=== PATIENT | male | born 1970 | race Caucasian/White ===

== ENCOUNTER 2019-10-29 21:14 | Emergency (ER) | payer OTHER, SELFPAY ==
[2019-10-29 21:15] VITALS: BP 124/68; PULSE 75; RESP 18; TEMP 36.7; O2SAT 98; BMI 36.6
--- NOTE | 2019-10-29 21:38 | CT_ITS ---
HISTORY: LT GROIN PAINHX:HTN,KIDNEY STONES ADDITIONAL HISTORY: None provided. TECHNIQUE: CT images were obtained of the abdomen and pelvis without IV contrast. Enteric contrast was not given. Number of images including paperwork: [id number]. A radiation dose optimization technique was used for this scan. COMPARISON: None FINDINGS: Evaluation of the abdominopelvic organs is limited in the absence of contrast. LOWER THORAX: No consolidation or pleural effusion. LIVER: Mildly decreased density in an inhomogeneous fashion compatible with steatosis. GALLBLADDER: No radiopaque calculi. BILE DUCTS: No significant biliary dilatation. SPLEEN: Unremarkable. PANCREAS: Unremarkable. ADRENAL GLANDS: Unremarkable. KIDNEYS/URETERS: Right renal cystic lesions with minimal peripheral calcification of right upper pole renal cyst. 1-2 mm nonobstructing right renal calculus. No ureteral calculi or hydronephrosis. BOWEL: No bowel obstruction. No significant bowel wall thickening. No localized inflammation. Mild colonic diverticulosis. APPENDIX: No evidence of appendicitis. FREE FLUID: No significant free fluid. FREE AIR: None. LYMPH NODES: No pathologic appearing adenopathy. PERITONEUM, RETROPERITONEUM AND MESENTERY: Otherwise unremarkable. VASCULATURE: Unremarkable as imaged. ABDOMINAL WALL: Unremarkable. PELVIS: Unremarkable bladder. OSSEOUS AND SOFT TISSUE STRUCTURES: No acute skeletal findings. Degenerative changes. CT/Abdomen/Pelvis without Cont IMPRESSION: 1. No acute abdominopelvic abnormality. 2. Right renal calculus. 3. Right renal cystic lesions, 1 of which has minimal calcification. 4. Colonic diverticulosis. Individualized dose optimization techniques were used for this CT. at [id number] Reported and signed by: Ivory Aquino MD Electronically Signed: Ivory Aquino MD at 22:16 EST Tel , Service support ,
[2019-10-29 21:46] LABS: Bacteria 0 SEEN /hpf (None Seen); Red Blood Cells-Urine 0 SEEN /hpf (0-5); Squamous Epithelial Cells - UA 0 SEEN /hpf (0-5)
[2019-10-29 21:48] LABS: Color, Urine Yellow (Yellow); Glucose, Dipstick Normal (Normal); Ketone-Dipstick 5 mg/dl (Negative); Leukocyte Esterase-Dipstick 25 /ul (Negative); Nitrite-Dipstick Negative (Negative); Occult Blood-Urine Negative /ul (Negative); Protein-Dipstick 15 mg/dl (Negative); Urine Bilirubin Dipstick Negative (Negative); Urine Clarity Clear (Clear); Urine Urobilinogen Normal (Normal)
[2019-10-29 22:00] LABS: Calcium Oxalate Crystals Ur RARE /hpf (<or=2+); Mucous, Urine 1+ /hpf (<or=2+); White Blood Cells 0-5 SEEN /hpf (0-5)
--- NOTE | 2019-10-29 22:38 | ED.VISSUMM ---
- ER Visit Summary Date of Service: 10/29/19 Chief Complaint: Flank pain History of Present Illness: The patient is a 49 M who started with left flank pain an hour ago. He states it radiates down to his groin on the left-hand side. He does have a history of kidney stones with the last one being 10 years ago. He denies any hematuria. He took 2 Advil and his pain is now much improved. He denies any fevers. No other symptoms. Physical Examination: Vital signs reviewed. HEENT exam unremarkable. Heart is regular rate and rhythm without murmurs. Lungs are clear to auscultation. Abdomen is soft and nontender. Extremities reveal no edema. Skin exam normal. Neurologic exam normal. Test Results: Urinalysis had 0-5 white blood cells and no red cells. CAT scan reveals no acute abnormalities. Emergency Department Course and Treatment: The patient's CAT scan reveals no evidence of any kidney stones. It is possible that he already passed a kidney stone. He states he feels much better and declines any medications here. He would like to be discharged to home. I informed him he should take medications such as ibuprofen or Tylenol for pain. Treatment Plan: [] Disposition: Discharge Impression: Left flank pain This note was generated with [employer] dictation software. It may contain incorrect words, spelling, and punctuation that were not noted in review of the chart prior to signing ED Disposition - Plan for ED Patient: Referrals: Jagruti Barajas PA [Primary Care Provider] -
--- NOTE | 2019-10-29 22:40 | ED.DEP ---
ED Disposition - Plan for ED Patient: Disposition: Home or Assisted Living Instructions: KIDNEY STONE, Undescended (No Symptoms) Referrals: Jagruti Barajas PA [Primary Care Provider] -
[2019-10-29 22:43] VITALS: BP 118/70; PULSE 70; RESP 14; O2SAT 98
== END 2019-10-29 22:49 | disposition home or self-care (01) ==
PROVIDERS: Emergency Provider Emergency Medicine; Family Provider Physician Assistant; PCP Physician Assistant
DX: R10.9 Unspecified abdominal pain (principal); I10 Essential (primary) hypertension; Z87.442 Personal history of urinary calculi; Z79.899 Other long term (current) drug therapy
CPT/HCPCS: 74176; 81001; 99282

== ENCOUNTER 2023-07-21 19:05 | Emergency (ER) | payer OTHER, SELFPAY ==
[2023-07-21 19:06] VITALS: BP 141/102; PULSE 66; RESP 16; TEMP 36.4; O2SAT 97; BMI 37.3
--- NOTE | 2023-07-21 19:21 | ED.VIS.CHEST ---
HPI History of Present Illness Chief Complaint: Chest Pain Narrative Narrative: 53-year-old male past medical history of hypertension is supposed to be taking lisinopril daily but does not presents with sharp stabbing left-sided chest pain that he experienced at rest while he was at a gnosticist function. He was sitting and felt sharp pain and perhaps some pressure on the left side of his chest. He denies any nausea or vomiting, no shortness of breath or diaphoresis. He states it lasted perhaps 5 minutes and then resolved. Now he thinks that he may be imagining that he might be having any other pain, but it is not as intense as it was. He told his about the stabbing chest pain. He also states that EMS was called and did a twelve-lead EKG and told him that they did not see anything acute but thought he should be evaluated for his chest pain. He denies any prior family history of early RI. No exacerbating or alleviating factors. [facility] Medical History HTN (hypertension) Home Medications lisinopril 5 mg tablet 5 mg PO DAILY 10/29/19 [History Last Taken Unknown] Allergy/AdvReac Type Severity Reaction Status Date / Time azithromycin Allergy Rash Verified 07/21/23 19:06 [From Zithromax Z-Rambo] Surgical History S/P ACL repair Social History Smoking Status: Never smoker ROS ROS ED ROS Narrative Constitutional: No fever, no chills. HEENT: No sore throat. No neck pain. No loss of vision. No rhinorrhea. Cardiovascular: 5 minutes of sharp and stabbing and/or pressure left-sided chest pain. No palpitations. No pedal edema. Respiratory: No cough, no shortness of breath. Abdominal: No abdominal pain. No nausea. No vomiting. Genitourinary: No dysuria. No hematuria. Musculoskeletal: No myalgias. No arthralgias. Neurologic: No headaches. No dizziness. No lightheadedness. Skin: No rash. No change in color. Psychiatric: No depression. No anxiety. EXAM Physical Exam Narrative Exam Narrative: Afebrile. Vital signs noted. HEENT: Normocephalic. Atraumatic. PERRL, EOMI. Neck soft and supple. No point tenderness or step off. Cardiovascular: Regular rate and rhythm. No murmurs, rubs, or gallops appreciated. Respiratory: No tachypnea. Lungs clear to auscultation bilaterally. Gastrointestinal: Abdomen soft, nontender, with normoactive bowel sounds. No rebound or guarding. Neurological: Awake. Alert. Nonfocal, nonlateralizing. Skin: No rash. Normal color. No pallor. Musculoskeletal: No pedal edema. Full range of motion extremities. Const Vital Signs: 07/21/23 19:06 07/21/23 19:22 07/21/23 19:22 Temperature 97.6 F L Temperature Source Temporal Pulse Rate 66 69 Respiratory Rate 16 17 Blood Pressure 141/102 H 150/90 H Blood Pressure Mean 115 110 Pulse Ox 97 96 Oxygen Delivery Method Room Air Room Air Heart Score History: Slightly/Non-Suspicious ECG: Normal Age: >45 - <65 years Risk Factors: 1 or 2 Risk Factors Score: 2 MDM MDM MDM Narrative Medical decision making narrative: Nursing protocol chest pain work-up was pursued. I reviewed his EKG independently and interpreted it as normal sinus rhythm at 65 bpm without ectopy or acute ST changes. No STEMI. I reviewed his laboratory work and he has a normal white count of 7.3, hemoglobin normal at 15.7, platelet count also normal at 210. BMP shows chloride slightly elevated at 108 which I think is nonspecific, glucose appropriately elevated at 98 with a low anion gap of 4. High-sensitivity troponin initially is 7. Chest x-ray interpreted by myself independently in 1 view shows no evidence of an acute process, no pneumothorax or pneumonia. I do not feel antibiotics are indicated. I have low suspicion for pulmonary embolism because the history and physical is not suggestive of that. The same goes for aortic dissection as he is not having tearing back pain, his history and physical is not suggestive of that either. At this point in time, his second troponin is pending. He was told that he needs to consistently take his lisinopril 5 mg orally for his blood pressure. Patient will be signed out to the oncoming physician Dr. Jackson Alexander to check the repeat troponin. I do feel that as long as it is normal, and delta troponin is less than 7 that he can be discharged to follow-up with his primary care provider. Patient is in stable condition. History & Record Review Discussion w/independent historian: Patient and Family Additional record(s) reviewed:: Prior ED visit Lab Data Attestation: I reviewed the patient's lab results. Labs: Laboratory Results - last 24 hr 07/21/23 19:20 WBC 7.3 RBC 5.02 Hgb 15.7 Hct 46.5 MCV 92.6 MCH 31.3 MCHC 33.8 RDW Std Deviation 43.1 RDW Coeff of Darrick 12.6 Plt Count 210 MPV 10.8 Immature Gran % (Auto) 0.500 Neut % (Auto) 73.6 H Lymph % (Auto) 17.2 L [place] % (Auto) 6.4 Eos % (Auto) 1.8 Baso % (Auto) 0.5 Absolute Neuts (auto) 5.4 Absolute Lymphs (auto) 1.26 Nucleated RBC % 0 Sodium 140 Potassium 3.6 Chloride 108 H Carbon Dioxide 28.0 Anion Gap 4 L BUN 15 Creatinine 1.10 Estim Creat Clear Calc 81.11 Est GFR (MDRD) Af Amer 90 Est GFR (MDRD) Non-Af 75 BUN/Creatinine Ratio 13.6 Glucose 98 Calcium 9.3 Troponin I High Sens 7 Radiography Diagnostic Testing: Clinical Impression(s) from Imaging Studies Chest X-Ray 07/21/23 19:37 IMPRESSION: 1. No radiographic evidence of acute cardiopulmonary disease. Electronically Signed: Jacoby Fraser DO at 20:07 EDT , Discharge Plan Triage Chief Complaint: Chest Pain ED Provider: Ryan Carvalho Dx/Rx/DC Orders Prescriptions: No Action lisinopril 5 MG tablet 5 mg PO DAILY Patient Comments: TAKE 1 TABLET BY MOUTH EVERY DAY Primary Care Provider: Jagruti Barajas Referrals: Jagruti Barajas PA [Primary Care Provider] -
[2023-07-21 19:22] VITALS: BP 150/90; PULSE 69; RESP 17; O2SAT 96
[2023-07-21 19:27] LABS: Absolute Lymphocyte Count 1.26 X10^3/uL (0.83-4.51); Absolute Neutrophil Count 5.4 X10^3/uL (2.0-7.7); Basophil# 0.04 X10^3/uL; Basophil% 0.5 % (0-1); Eosinophil# 0.13 X10^3/uL; Eosinophils% 1.8 % (0-5); Hematocrit 46.5 % (40-54); Hemoglobin 15.7 g/dL (13.0-16.5); Lymphocyte # 1.26 X10^3/ul (0.83-4.51); Lymphocyte % 17.2 % (19-41); Mean Corp Hgb Conc 33.8 g/dL (32-36); Mean Corpuscular Hgb 31.3 pg (27.0-32.0); Mean Corpuscular Volume 92.6 fL (80-94); Mean Platelet Vol. 10.8 fl (6.2-12.0); Monocyte# 0.47 X10^3/uL; Monocyte% 6.4 % (0-10); NRBC Flagged by Analyzer 0 % (0-5); Neutrophil # 5.38 X10^3/uL (2.7-7.7); Neutrophil % 73.6 % (47-70); Platelet Count 210 K/mm3 (150-450); RBC Distribution Width CV 12.6 % (11.6-14.6); RBC Distribution Width SD 43.1 fl (35.1-43.9); Red Blood Count 5.02 M/mm3 (4.6-6.2); White Blood Count 7.3 K/mm3 (4.4-11.0)
--- NOTE | 2023-07-21 19:37 | RAD_ITS ---
INDICATION: chest pain EXAMINATION/TECHNIQUE: X-RAY - XR Chest 1 View COMPARISON: CT abdomen and pelvis October 29, 2019. FINDINGS: LINES/DEVICES: None. LUNGS: Symmetric normal lung volumes. No airspace opacity or abnormal interstitial pattern. No nodule or mass. No pleural effusion or pneumothorax. MEDIASTINUM AND CARDIOVASCULAR STRUCTURES: Normal size and contour of the cardiomediastinal silhouette. No evidence of pulmonary vascular congestion. BONES AND SOFT TISSUES: No fracture or focal osseous lesion. RAD/Chest 1 View (Portable) IMPRESSION: 1. No radiographic evidence of acute cardiopulmonary disease. Electronically Signed: Jacoby Fraser DO at 20:07 EDT ,
[2023-07-21 19:45] LABS: Anion Gap 4 (5-15); BUN 15 mg/dL (7-18); BUN/Creat Ratio 13.6 RATIO (10-20); Calcium,Total 9.3 mg/dL (8.5-10.1); Chloride 108 mmol/L (98-107); EST Glomerular Filtration Rate 75 mL/min (>60); Est Glom Filt Rate - Afr Amer 90 mL/min (>60); Estimated Creatinine Clearance 81.11 ml/min; Glucose 98 mg/dL (74-106); Potassium 3.6 mmol/L (3.5-5.1); Sodium Level 140 mmol/L (136-145); Troponin-I HS (w/2H Reflex) 7 pg/mL (3.0-78.0)
[2023-07-21 21:25] LABS: Reflex Troponin-HS? (from REC) Y
[2023-07-21 22:34] LABS: Troponin-I HS 9 pg/mL (3.0-78.0)
[2023-07-21 23:13] VITALS: BP 136/83
== END 2023-07-21 23:19 | disposition home or self-care (01) ==
PROVIDERS: Emergency Provider Emergency Medicine; PCP Physician Assistant; Visit Provider Emergency Medicine
DX: R07.9 Chest pain, unspecified (principal); I10 Essential (primary) hypertension; Z79.899 Other long term (current) drug therapy
CPT/HCPCS: 71045; 80048; 84484; 85025; 93005; 99283; A4216

== ENCOUNTER 2025-04-03 22:01 | Emergency (ER) | payer OTHER, SELFPAY ==
[2025-04-03 22:01] VITALS: BP 151/91; PULSE 72; RESP 18; TEMP 36.3; O2SAT 98; BMI 34.7
--- NOTE | 2025-04-03 22:25 | CT_ITS ---
PROCEDURE: ABDOMEN/PELVIS WITHOUT CONT 04/03/2025 REASON FOR EXAM: KIDNEY STONE TECHNIQUE: Abdomen and pelvis CT without intravenous contrast. Noncontrast technique limits evaluation of the abdominal and pelvic viscera. Coronal and Sagittal reconstruction series were provided. One or more dose reduction techniques were used (e.g., Automated exposure control, adjustment of the mA and/or kV according to patient size, use of iterative reconstruction technique). PATIENT PREPARATION: Per protocol ORAL CONTRAST TYPE: None. AMOUNT: mL COMPARISON: CT abdomen and pelvis 10/29/2019 FINDINGS: Lung bases: Left lower lobe consolidative opacity with air bronchograms, concerning for pneumonia. Liver: Normal size. No obvious mass. Gallbladder: No ductal dilation. Gallbladder is unremarkable. Spleen: Normal size. Pancreas: Normal size. No surrounding inflammation. Adrenals: Unremarkable. Kidneys: 2 mm left UVJ calculus. No hydronephrosis. 2 mm nonobstructing right upper pole calculus. No right hydronephrosis. Right renal simple cyst. Bladder: Urinary bladder is unremarkable. Reproductive Organs: No pelvic mass. No prostatomegaly. Bowel: Small hiatal hernia. The stomach is otherwise unremarkable. No bowel dilation. Colonic diverticulosis without diverticulitis. Moderate colonic stool. Appendix: Normal appendix. Lymph nodes: No suspicious lymph node enlargement. Vasculature: The abdominal aorta and IVC contours are normal. Noncontrast technique limits evaluation. Mild atherosclerotic calcifications. Peritoneum / Retroperitoneum: No pneumoperitoneum. No ascites. Bones: Degenerative changes of the spine. CT/Abdomen/Pelvis without Cont IMPRESSION: 1. 2 mm left UVJ calculus, without hydronephrosis. 2. Additional 2 mm right upper pole nonobstructing calculus. 3. Left lower lobe consolidative opacity, concerning for pneumonia. 4. Colonic diverticulosis without diverticulitis. OVERALL FINAL ASSESSMENT: . LI-RADS is not meant to be used in patients <18 years or patients with cirrhosi s due to congenital hepatic fibrosis or due to vascular disorders, because these patients have a lower chance of developing HC C. [facility]
[2025-04-03] MEDS: Morphine 4 MG/ML Syringe IV (22:57)
[2025-04-03] MEDS: 0.9% Normal Saline (1000mL) 1,000 ML 250 ML IV (22:57)
[2025-04-03] MEDS: Ondansetron 4 MG/2 ML Vial IV (22:57)
[2025-04-03] MEDS: Ketorolac 15 MG/ML Vial IV (22:57)
[2025-04-03 23:01] VITALS: PULSE 72; RESP 18; O2SAT 96
--- NOTE | 2025-04-03 23:03 | EX.ED.DYSGE1 ---
HPI History of Present Illness Chief Complaint: Flank Pain Informant: patient and spouse/S.O. Narrative Narrative: Sudden left-sided flank pain shortly prior to arrival. Had more dark urine this morning. No fever or chills. No vomiting. History of kidney stones 2 in the past with no interventions. Last time was 10 years ago. History of hypertension on medications. Denies gastric ulcers or kidney injury history. Allergy to Zithromax. Prior similar symptoms: Yes PFSH PFSH Medical History Pneumonia Kidney stone HTN (hypertension) Home Medications ?Medication ?Instructions ?Recorded ?Last Taken ?Type lisinopril 5 mg tablet 5 mg PO DAILY 10/29/19 Unknown History ondansetron 4 mg disintegrating 4 mg PO Q8H PRN PRN Nausea #10 tabs 04/04/25 Unknown Rx tablet oxycodone-acetaminophen 5 mg-325 1 tab PO Q6H PRN PRN Pain 3 days 04/04/25 Unknown Rx mg tablet #12 TABLETS Allergy/AdvReac Type Severity Reaction Status Date / Time azithromycin (From Zithromax Allergy Rash Verified 04/03/25 22:03 Z-Rambo) Surgical History S/P ACL repair Social History Smoking Status: Never smoker ROS ROS ED Constitutional Constitutional ED: Denies chills, fever(s) or sweats ENT ENT ED: Denies sore throat Cardiovascular Cardiovascular: Denies chest pain, leg edema, palpitations or racing heartbeat Respiratory/Chest Respiratory/Chest: Denies cough, dyspnea or dyspnea on exertion Gastrointestinal Gastrointestinal: Denies abdominal pain, diarrhea, nausea or vomiting Genitourinary Genitourinary ED: Denies dysuria, hematuria or urinary frequency Musculoskeletal Musculoskeletal: Reports back pain; Denies extremity pain or neck pain Integumentary Denies rash or wounds Neurologic Neurologic: Denies headache(s), paresthesias or weakness EXAM Physical Exam Const Vital Signs: 04/03/25 22:01 04/03/25 23:01 04/04/25 00:00 Temperature 97.4 F L 98.8 F Temperature Source Oral Oral Pulse Rate 72 72 76 Respiratory Rate 18 18 16 Blood Pressure 151/91 H 130/84 H Blood Pressure Mean 111 99 Pulse Ox 98 96 97 Oxygen Delivery Method Room Air Room Air Room Air Positive well nourished and well developed Constitutional Narrative: Nontoxic, uncomfortable General Appearance ED: well developed HEENT Reports moist mucous membranes normocephalic and atraumatic Eyes General Eye ED: Yes normal appearance of both eyes Neck full ROM Chest Wall Chest: Negative for tenderness Resp normal respiratory effort and normal air movement Effort and Inspection: symmetric chest movement; Negative for respiratory distress Cardio regular rate, regular rhythm and no murmurs Peripheral Pulses: pulses 2+ throughout GI normal to inspection, nondistended, normoactive bowel sounds and non-tender Palpation: Negative for guarding or rebound tenderness present Back/Spine Back/Spine Narrative: tender left CVA. Extremity normal to inspection General Extremety ED: Negative for edema or tenderness General Extremity: Negative for edema Neuro oriented x3 and no sensory deficits noted Sensorium / Orientation: awake and alert Skin no rashes or lesions noted and no wounds MDM MDM MDM Narrative Medical decision making narrative: Interventions / MDM: Differential diagnosis: Left renal colic, kidney stone, hematuria Diagnosis considered but do not suspect: UTI however labs negative My EKG interpretation: N/A Imaging independently reviewed and interpreted by myself: CT abdomen pelvis: Tiny stone currently in the bladder. No obstructive uropathy noted. External documents reviewed: N/A Test considered but not ordered:N/A ED course: Sudden left flank pain history of kidney stones. Uncomfortable. Nontoxic.Vital stable. IV established. Renal stone protocol initiated. Fluids, morphine Toradol and Zofran ordered for symptom control. 2224: Symptoms improved at this time. I reviewed interpreted CT scan appears there is a tiny stone in the bladder currently. No obstructive uropathy seen. 0040: Per radiology reporting 2 mm stone left UVJ without hydro. Clinically remains symptom-free. Urine with hematuria no infection. Normal renal function normal white count. He has ibuprofen at home. I will write for oxycodone and Zofran to use as needed. Urology follow-up. All questions were answered. Re-evaluation: stable Disposition discussed with patient/family/significant other: Patient significant other Case discussed with consulting clinician: N/A This note was generated with [employer] software. It may contain incorrect words, spelling, and punctuation that were not noted in checking the note before signing. Lab Data Attestation: I reviewed the patient's lab results. Labs: Laboratory Results - last 24 hr 04/03/25 04/03/25 23:00 23:55 WBC 5.7 RBC 4.70 Hgb 14.0 Hct 42.3 MCV 90.0 MCH 29.8 MCHC 33.1 RDW Std Deviation 46.3 H RDW Coeff of Darrick 14.1 Plt Count 190 MPV 12.1 H Immature Gran % (Auto) 0.400 Neut % (Auto) 68.3 Lymph % (Auto) 21.1 [place] % (Auto) 7.1 Eos % (Auto) 2.7 Baso % (Auto) 0.4 Absolute Neuts (auto) 3.9 Absolute Lymphs (auto) 1.19 Nucleated RBC % 0 Sodium 136 Potassium 3.6 Chloride 103 Carbon Dioxide 21.8 Anion Gap 12 BUN 15 Creatinine 1.08 Estim Creat Clear Calc 98.13 Est GFR (MDRD) Non-Af 82 BUN/Creatinine Ratio 14.2 Glucose 197 H Calcium 9.2 Urine Color Yellow Urine Clarity Clear Urine pH 5.0 Ur Specific [place] 1.025 Urine Protein 30 H Urine Glucose (UA) Normal Urine Ketones 5 H Urine Occult Blood 250 H Urine Nitrite Negative Urine Bilirubin Negative Urine Urobilinogen 1 H Ur Leukocyte Esterase 25 H Urine RBC 10-25 SEEN Urine WBC 0 SEEN Ur Squamous Epith Cells 0 SEEN Urine Bacteria RARE Urine Mucus 0 SEEN Radiography Diagnostic Testing: Clinical Impression(s) from Imaging Studies Abdomen/Pelvis CT 04/03/25 22:25 IMPRESSION: 1. 2 mm left UVJ calculus, without hydronephrosis. 2. Additional 2 mm right upper pole nonobstructing calculus. 3. Left lower lobe consolidative opacity, concerning for pneumonia. 4. Colonic diverticulosis without diverticulitis. OVERALL FINAL ASSESSMENT: . LI-RADS is not meant to be used in patients <18 years or patients with cirrhosis due to congenital hepatic fibrosis or due to vascular disorders, because these patients have a lower chance of developing HCC. [facility] Triage Chief Complaint: Flank Pain ED Provider: Bunny Maher Dx/Rx/DC Orders Clinical Impression: Kidney stone on left side, Renal colic on left side, Hematuria Instructions: ED Kidney Stone with Pain Prescriptions: New oxycodone-acetaminophen 5-325 mg tablet 1 tab PO Q6H PRN PRN (Reason: Pain) 3 Days Qty: 12 0RF ondansetron 4 mg tablet,disintegrating 4 mg PO Q8H PRN PRN (Reason: Nausea) Qty: 10 0RF No Action lisinopril 5 MG tablet 5 mg PO DAILY Patient Comments: TAKE 1 TABLET BY MOUTH EVERY DAY Primary Care Provider: Jagruti Barajas Referrals: Branden Church MD [Med Staff - Active Staff] - 1-2 Weeks Jagruti Barajas PA [Primary Care Provider] - Activity Restrictions/Additional Instructions: CT scan reporting 2 mm stone left UVJ, on my review appears to be in the bladder. Urine negative for infection noted blood. This is expected with kidney stones. Your labs are normal. Use your Advil at home to 600 mg. Can use Zofran and additional pain medicines if needed. Follow-up with urology. Print Language: Frisian Disposition Disposition: Home, Self Care
[2025-04-03 23:08] LABS: Absolute Lymphocyte Count 1.19 X10^3/uL (0.83-4.51); Absolute Neutrophil Count 3.9 X10^3/uL (2.0-7.7); Basophil# 0.02 X10^3/uL; Basophil% 0.4 % (0-1); Eosinophil# 0.15 X10^3/uL; Eosinophils% 2.7 % (0-5); Hematocrit 42.3 % (40-54); Lymphocyte # 1.19 X10^3/ul (0.83-4.51); Lymphocyte % 21.1 % (19-41); Mean Corp Hgb Conc 33.1 g/dL (32-36); Mean Corpuscular Hgb 29.8 pg (27.0-32.0); Mean Platelet Vol. 12.1 fl (6.2-12.0); Monocyte% 7.1 % (0-10); NRBC Flagged by Analyzer 0 % (0-5); Neutrophil # 3.87 X10^3/uL (2.7-7.7); Neutrophil % 68.3 % (47-70); Platelet Count 190 K/mm3 (150-450); RBC Distribution Width CV 14.1 % (11.6-14.6); RBC Distribution Width SD 46.3 fl (35.1-43.9); White Blood Count 5.7 K/mm3 (4.4-11.0)
[2025-04-03 23:38] LABS: Anion Gap 12 (5-15); BUN 15 mg/dL (4-19); BUN/Creat Ratio 14.2 RATIO (10-20); Calcium,Total 9.2 mg/dL (7.6-11.0); Carbon Dioxide 21.8 mmol/L (21.0-32.0); Chloride 103 mmol/L (98-108); Creatinine, Serum 1.08 mg/dL (0.70-1.20); EST Glomerular Filtration Rate 82 (>60); Estimated Creatinine Clearance 98.13 ml/min (50-250); Glucose 197 mg/dL (70-99); Potassium 3.6 mmol/L (3.3-5.1); Sodium Level 136 mmol/L (133-145)
[2025-04-03 23:59] LABS: Mucous, Urine 0 SEEN /hpf (<or=2+); Squamous Epithelial Cells - UA 0 SEEN /hpf (0-5); White Blood Cells 0 SEEN /hpf (0-5)
[2025-04-04] VITALS: BP 130/84; PULSE 76; RESP 16; TEMP 37.1; O2SAT 97
[2025-04-04] LABS: Color, Urine Yellow (Yellow); Glucose, Dipstick Normal (Normal); Ketone-Dipstick 5 mg/dl (Negative); Leukocyte Esterase-Dipstick 25 /ul (Negative); Nitrite-Dipstick Negative (Negative); Occult Blood-Urine 250 /ul (Negative); Protein-Dipstick 30 mg/dl (Negative); Specific Gravity, Urine 1.025 (1.002-1.030); Urine Bilirubin Dipstick Negative (Negative); Urine Clarity Clear (Clear); Urine Urobilinogen 1 mg/dl (Normal)
[2025-04-04 00:25] LABS: Bacteria RARE /hpf (None Seen); Red Blood Cells-Urine 10-25 SEEN /hpf (0-5)
[2025-04-04 00:47] VITALS: BP 113/72; PULSE 73; RESP 16; TEMP 36.7; O2SAT 98
== END 2025-04-04 00:52 | disposition home or self-care (01) ==
PROVIDERS: Emergency Provider Emergency Medicine; PCP Physician Assistant; Visit Provider Emergency Medicine
DX: N20.2 Calculus of kidney with calculus of ureter (principal); I10 Essential (primary) hypertension; R31.9 Hematuria, unspecified; Z87.442 Personal history of urinary calculi
CPT/HCPCS: 74176; 80048; 81001; 85025; 96361; 96374; 96375; 99283; A4216; J2405

== ENCOUNTER 2025-04-14 02:56 | Emergency (ER) | payer OTHER, SELFPAY ==
[2025-04-14 02:57] VITALS: BP 141/105; PULSE 59; RESP 18; TEMP 36.5; O2SAT 100; BMI 35.2
--- NOTE | 2025-04-14 03:45 | EDS_ITS ---
HPI History of Present Illness Chief Complaint: Back Informant: patient Onset/Context/Timing Onset: Days Context: Gradual Onset Timing: Continuous Quality: Sharp and Aching Current Severity: Mild Maximum Severity: Moderate Worsened by: improves with - (Lying supine. Better with movement.) Associated Symptoms Associated Symptoms: Negative for Numbness, Tingling, Radiation to Right Leg, Radiation to Left Leg, Fever, Abdominal Pain, Dysuria, Unable to Ambulate, Unable to Transfer, Urinary Retention, Urinary Incontinence, Constipation or Fecal Incontinence Narrative Narrative: 55-year-old male history of hypertension. He said pneumonia last several weeks he has been on 3 antibiotics. He says it is starting to resolve. He has been coughing a lot. Patient states he is having upper back and shoulder pain from all the coughing believes he has muscle spasms. No prior back history or back surgery. No significant low back pain. No numbness or weakness to his upper or lower extremities. No bowel or bladder incontinence. No fall or trauma. Patient was seen by urgent care yesterday. Was placed on muscle relaxant and anti-inflammatory. He is only taken 1 of each. He said he is not getting any relief. Prior similar symptoms: No Recent Illness/Hospitalization: No PFSH PFSH Medical History Pneumonia Kidney stone HTN (hypertension) Home Medications ?Medication ?Instructions ?Recorded ?Last Taken ?Type lisinopril 5 mg tablet 5 mg PO DAILY 10/29/19 Unkno wn History ondansetron 4 mg disintegrating 4 mg PO Q8H PRN PRN Na usea #10 tabs 04/04/25 Unknown Rx tablet oxycodone-acetaminophen 5 mg-325 1 tab PO Q6H PRN PRN Pain 3 days 04/04/25 Unknown Rx mg tablet #12 TABLETS Allergy/AdvReac Type Severity Reaction Status Date / Time azithromycin (From Zithromax Allergy Rash Verified 04/14/25 03:00 Z-Rambo) Surgical History S/P ACL repair Social History Smoking Status: Never smoker ROS ROS ED ROS Narrative Recent pneumonia. Back pain. Constitutional Constitutional ED: Denies chills or fever(s) Eyes Eyes: Denies blurry vision ENT ENT ED: Denies ear pain Cardiovascular Cardiovascular: Denies chest pain Respiratory/Chest Respiratory/Chest: Denies dyspnea Gastrointestinal Gastrointestinal: Denies abdominal pain Genitourinary Genitourinary ED: Denies dysuria or hematuria Musculoskeletal Musculoskeletal: Reports back pain; Denies arthralgias, myalgias or neck pain Integumentary Denies abscess or Abrasions Neurologic Neurologic: Denies headache(s) Psychiatric Psychiatric: Reports anxiety Endocrine Endocrinology: Denies cold intolerance Hematologic/Lymphatic Hematologic/Lymphatic: Denies easy bleeding, easy bruising or lymphadenopathy Allergic/Immunologic Allergic/Immunologic ED: Denies mouth swelling, tongue swelling or urticaria EXAM Physical Exam Narrative Exam Narrative: Well-appearing 55-year-old male. Anxious. Vital signs stable afebrile. Pulse ox 100% on room air. No hypoxia. He is anxious but he is in no distress. H EENT exam pupils round react to light. Moist mucous membranes. Neck nontender no lymphadenopathy. Lungs clear to auscultation bilaterally. Heart regular rhythm rate about 60 no murmur. Chest wall ribs nontender. Abdomen soft nontender. Moving all 4 extremities. He can stand up without any difficulty. Normal sleeve setter safety stitch strength 5 out of 5 bilaterally. Normal dorsi plantarflexion. No cauda equina. No saddle anesthesia. Back his lower back and lower spine are nontender. His upper shoulders parathoracic area soft tissue tenderness consistent with muscle spasm. There is no redness or warmth. There is no signs of trauma. Neurologically is awake and alert. Answering questions following commands. Normal upper and lower extremity strength. Again no cauda equina. Const Vital Signs: 04/14/25 02:57 Temperature 97.7 F L Temperature Source Oral Pulse Rate 59 L Respiratory Rate 18 Blood Pressure 141/105 H Blood Pressure Mean 117 Pulse Ox 100 Oxygen Delivery Method Room Air Positive well nourished and well developed; Negative for cachectic, contractures or unkempt General Appearance ED: well developed and NAD; Negative for unkempt, cachectic, contractures or pallor Nutritional Appearance: Negative for cachectic HEENT Denies moist mucous membranes, dry mucous membranes or other Negative for trauma, tenderness or other Mouth ED: No dry mucous membranes Mouth: No dry mucous membranes Eyes PERRL and EOMs intact bilaterally Neck no lymphadenopathy, supple and no JVD Resp normal respiratory effort and clear to auscultation bilaterally Cardio regular rate, regular rhythm, S1 normal heart sound, S2 normal heart sound and no murmurs GI normal to inspection, nondistended, normoactive bowel sounds, soft to palpation, non-tender, non-distended and no masses Palpation: Negative for tender, guarding or rebound tenderness present Back/Spine normal to inspection and no thoracic nor lumbar tenderness Back/Spine Narrative: Upper shoulders lower paracervical and upper parathoracic soft tissue tenderness consistent with muscle spasm. Cervical Spine: Negative for cervical spine tenderness and paracervical muscle tenderness Thoracic Spine / Upper Back: paraspinal muscle tenderness Extremity normal to inspection and no clubbing, cyanosis or edema General Extremety ED: Negative for edema or tenderness General Extremity: Negative for edema Neuro oriented x3 and no sensory deficits noted Sensorium / Orientation: alert; Negative for confused, lethargic or stuporous Motor Exam: strength 5/5 throughout Psych mental status grossly normal Appearance: Negative for unkempt Skin no rashes or lesions noted and no wounds General Skin Exam: Negative for jaundice or pallor Lesions: No lesion noted Rashes: No rashes noted Trauma: Negative for abrasion or puncture Wounds: Negative for wounds noted MDM MDM MDM Narrative Medical decision making narrative: 55-year-old male exam benign. Lungs are clear. He does have reproducible musculoskeletal pain in the upper back consistent with muscle spasm. He is on a muscle relaxant anti-inflammatory but just started those. Will be given IM Toradol, morphine and Zofran for his pain help him sleep tonight he should continue using his medications. Massage. Hot shower warm bath and should progressively improve. Patient is comfortable with the plan. History & Record Review Discussion w/independent historian: Patient and Family Additional record(s) reviewed:: Prior inpatient record, Prior outpatient record, Prior ED visit and Prior labs Discharge Plan Triage Chief Complaint: Back ED Provider: Dhaval Marks Dx/Rx/DC Orders Clinical Impression: Back muscle spasm, History of hypertension Instructions: ED Back Spasm, No Trauma Prescriptions: No Action lisinopril 5 MG tablet 5 mg PO DAILY Patient Comments: TAKE 1 TABLET BY MOUTH EVERY DAY oxycodone-acetaminophen 5-325 mg tablet 1 tab PO Q6H PRN PRN (Reason: Pain) 3 Days Qty: 12 0RF ondansetron 4 mg tablet,disintegrating 4 mg PO Q8H PRN PRN (Reason: Nausea) Qty: 10 0RF Primary Care Provider: Jagruti Barajas Referrals: Jagruti Barajsa, PA [Primary Care Provider] - 3-5 Days if not improving Activity Restrictions/Additional Instructions: Your back spasms. Typically from strain your back and then the muscle goes in spasm. Hot shower, warm bath, whirlpool tub and massage. Use the muscle relaxant the urgent care person prescribed to you. Also the anti-inflammatory meloxicam. This should progressively get better over the next several days. Follow-up with your primary care physician if not improving. Print Language: Hebrew Disposition Disposition: Home, Self Care
[2025-04-14] MEDS: Ketorolac 60 MG/2 ML Vial IM (03:52)
[2025-04-14] MEDS: Ondansetron 8 MG Tablet PO (03:54)
[2025-04-14] MEDS: morphine 10 MG/ML Syringe IM (03:54)
[2025-04-14 04:31] VITALS: BP 129/87; PULSE 68; RESP 16; TEMP 37.2; O2SAT 96
== END 2025-04-14 04:32 | disposition home or self-care (01) ==
PROVIDERS: Emergency Provider Emergency Medicine; PCP Physician Assistant; Visit Provider Emergency Medicine
DX: M62.830 Muscle spasm of back (principal); I10 Essential (primary) hypertension
CPT/HCPCS: 96372; 99283

== ENCOUNTER 2025-04-17 20:40 | Emergency (ER) | payer OTHER, SELFPAY ==
[2025-04-17 20:41] VITALS: BP 146/90; PULSE 68; RESP 15; TEMP 36.3; O2SAT 97; BMI 34.7
--- NOTE | 2025-04-17 21:05 | EDS_ITS ---
HPI History of Present Illness Chief Complaint: Edema Informant: patient Onset/Context/Timing Onset: Today and Hours Context: Gradual Onset Timing: Continuous Current Severity: Mild Maximum Severity: Mild Narrative Narrative: 55-year-old male history of hypertension and kidney stones. He has not been on his lisinopril for 2 weeks. Said tonight he thought his lips felt tingling and maybe like they were swelling. Denies any trouble breathing or swallowing. No tongue swelling. No prior history. No trauma. Prior similar symptoms: No Recent Illness/Hospitalization: No PFSH PFSH Medical History Pneumonia Kidney stone HTN (hypertension) Home Medications ?Medication ?Instructions ?Recorded ?Last Taken ?Type lisinopril 5 mg tablet 5 mg PO DAILY 10/29/19 Unkno wn History ondansetron 4 mg disintegrating 4 mg PO Q8H PRN PRN Na usea #10 tabs 04/04/25 Unknown Rx tablet oxycodone-acetaminophen 5 mg-325 1 tab PO Q6H PRN PRN Pain 3 days 04/04/25 Unknown Rx mg tablet #12 TABLETS Allergy/AdvReac Type Severity Reaction Status Date / Time azithromycin (From Zithromax Allergy Rash Verified 04/17/25 20:48 Z-Rambo) Surgical History S/P ACL repair Social History Smoking Status: Never smoker ROS ROS ED ROS Narrative Recent pneumonia. Resolving. Constitutional Constitutional ED: Denies chills or fever(s) Eyes Eyes: Denies blurry vision ENT ENT ED: Denies ear pain Cardiovascular Cardiovascular: Denies chest pain Respiratory/Chest Respiratory/Chest: Denies cough or dyspnea Gastrointestinal Gastrointestinal: Denies abdominal pain Genitourinary Genitourinary ED: Denies dysuria Musculoskeletal Musculoskeletal: Denies arthralgias Integumentary Denies abscess Neurologic Neurologic: Denies headache(s) Psychiatric Psychiatric: Denies anxiety Endocrine Endocrinology: Denies cold intolerance Hematologic/Lymphatic Hematologic/Lymphatic: Reports none Allergic/Immunologic Allergic/Immunologic ED: Denies mouth swelling, tongue swelling or urticaria EXAM Physical Exam Narrative Exam Narrative: Well-appearing 55-year-old male. Vital signs are stable afebrile. He is in no distress. H EENT exam pupils round reactive light. Moist mucous membranes. He is really no swelling at this time of his lips or tongue. No trouble breathing. No stridor or drooling. Neck nontender. No lymphadenopathy. Lungs clear to auscultation bilaterally. Heart regular rhythm no murmur rate about 70. Chest wall ribs nontender. Abdomen soft nontender. Moving all 4 extremities. Nontender no edema. Normal strength. Normal range of motion. Neurologically is awake and alert. Answering questions following commands. Very benign exam. At this time I do not appreciate any swelling of his lips or tongue. This does not look like angio edema. Const Vital Signs: 04/17/25 20:41 04/17/25 20:55 Temperature 97.3 F L Temperature Source Temporal Pulse Rate 68 Respiratory Rate 15 Respiratory Effort Normal Non-Labored Respiratory Pattern Normal Blood Pressure 146/90 H Blood Pressure Mean 108 Pulse Ox 97 Oxygen Delivery Method Room Air Positive well nourished and well developed; Negative for cachectic, contractures or unkempt General Appearance ED: well developed and NAD; Negative for unkempt, cachectic, contractures, cyanotic, diaphoretic or pallor Nutritional Appearance: Negative for cachectic HEENT Reports moist mucous membranes Eyes PERRL and EOMs intact bilaterally Neck no lymphadenopathy, supple and no JVD Chest Wall inspection of chest normal and palpation of chest normal Resp normal respiratory effort and clear to auscultation bilaterally Cardio regular rate, regular rhythm, S1 normal heart sound, S2 normal heart sound and no murmurs GI normal to inspection, nondistended, normoactive bowel sounds, non-tender, non- distended and no masses Palpation: soft; Negative for tender or guarding Back/Spine no CVA tenderness Extremity normal to inspection General Extremety ED: Negative for edema or tenderness General Extremity: Negative for edema Neuro oriented x3 and CN's II-XII intact bilaterally Sensorium / Orientation: alert; Negative for orientation impaired, lethargic or stuporous Motor Exam: strength 5/5 throughout Psych mental status grossly normal Appearance: Negative for unkempt Mood & Affect: anxious Skin no rashes or lesions noted, no wounds and skin turgor normal General Skin Exam: elasticity normal; Negative for jaundice or pallor Lesions: No lesion noted Rashes: No rashes noted Trauma: Negative for abrasion Wounds: Negative for wounds noted MDM MDM MDM Narrative Medical decision making narrative: 55-year-old male presents with subjective lip swelling. Objectively there is no swelling of his lips or tongue. He will be given a dose of prednisone 60 mg. Ice pack to his lips. He will be reassessed. At this time he does not look like an acute allergic reaction. It does not look like an EMORY inhibitor induced angioedema. I will be observed and rechecked. Repeat exam patient doing well at 9:38 PM. There is no swelling at this time of his lips or tongue. No trouble swallowing or breathing. Will be discharged home. History & Record Review Discussion w/independent historian: Patient Additional record(s) reviewed:: Prior inpatient record, Prior outpatient record, Prior ED visit and Prior labs Discharge Plan Triage Chief Complaint: Edema ED Provider: Dhaval Marks Dx/Rx/DC Orders Clinical Impression: Lip swelling Prescriptions: No Action lisinopril 5 MG tablet 5 mg PO DAILY Patient Comments: TAKE 1 TABLET BY MOUTH EVERY DAY oxycodone-acetaminophen 5-325 mg tablet 1 tab PO Q6H PRN PRN (Reason: Pain) 3 Days Qty: 12 0RF ondansetron 4 mg tablet,disintegrating 4 mg PO Q8H PRN PRN (Reason: Nausea) Qty: 10 0RF Primary Care Provider: Jagruti Barajas Referrals: Jagruti Barajas PA [Primary Care Provider] - As Needed Activity Restrictions/Additional Instructions: At this time I do not appreciate any significant swelling to your lips or tongue. Ice to your lips. You can use Benadryl at home as needed. If you start having significant swelling of your lips or tongue return but at this time there is nothing to do. I did give you a dose of prednisone which should last for 24 hours. Follow-up with your primary care physician. Print Language: Australian Disposition Disposition: Home, Self Care
[2025-04-17] MEDS: predniSONE 20 MG Tablet 60 MG PO (21:08)
[2025-04-17 21:40] VITALS: BP 130/68; PULSE 70; RESP 18; TEMP 36.6; O2SAT 100
== END 2025-04-17 21:43 | disposition home or self-care (01) ==
PROVIDERS: Emergency Provider Emergency Medicine; PCP Physician Assistant; Visit Provider Emergency Medicine
DX: R22.0 Localized swelling, mass and lump, head (principal); I10 Essential (primary) hypertension; Z79.899 Other long term (current) drug therapy; Z87.442 Personal history of urinary calculi
CPT/HCPCS: 99282

== ENCOUNTER 2025-04-18 17:50 | Emergency (ER) | payer OTHER, SELFPAY ==
[2025-04-18 17:53] VITALS: BP 149/99; PULSE 73; RESP 16; TEMP 36.8; O2SAT 98; BMI 34.4
[2025-04-18 18:06] VITALS: BMI 33.7
[2025-04-18 18:43] VITALS: BP 152/82; PULSE 69; RESP 14; O2SAT 98
--- NOTE | 2025-04-18 19:01 | EDS_ITS ---
HPI History of Present Illness Chief Complaint: Neuro S/Sx Informant: patient Narrative Narrative: Patient is a 55-year-old male with history of hypertension presenting with left- sided facial droop and difficulty blinking with his left eye. He was seen in our ER last night for concern of lip swelling. He had previously been on lisinopril but notes he been off of it for the past 2 weeks. He is empirically placed on Benadryl but at that time his exam was largely normal. No signs of edema or angioedema at that time. He states waking up today and throughout the day has had worsening difficulty of movement of the left side of his face, dry eye and difficulty completely blinking his left eye. He tried to blow his nose today and had a hard time because he could not close his mouth all the way. He came in for further evaluation. He notes that he gets recurrent effusions in his ear and his ENT in [place] has had to drain his fluid in his ears in the past. He states he has not decreased hearing in his ear recently and feels that his ear needs to be drained again. He denies any speech changes. Denies any associated numbness or tingling. Has any weakness of his arms. Noted difficulty ambulate. No other complaints or concerns at this time. [facility] Medical History Pneumonia Kidney stone HTN (hypertension) Home Medications ?Medication ?Instructions ?Recorded ?Last Taken ?Type lisinopril 5 mg tablet 5 mg PO DAILY 10/29/19 Unkno wn History ondansetron 4 mg disintegrating 4 mg PO Q8H PRN PRN Na usea #10 tabs 04/04/25 Unknown Rx tablet oxycodone-acetaminophen 5 mg-325 1 tab PO Q6H PRN PRN Pain 3 days 04/04/25 Unknown Rx mg tablet #12 TABLETS prednisone 20 mg tablet 60 mg (3 x 20 mg) PO DAILY 6 days 04/18/25 Unknown Rx #18 TABLETS Allergy/AdvReac Type Severity Reaction Status Date / Time azithromycin (From Zithromax Allergy Rash Verified 04/18/25 17:59 Z-Rambo) Family History no significant family his Surgical History S/P ACL repair Social History Smoking Status: Never smoker ROS ROS ED Constitutional Constitutional ED: Denies chills or fever(s) Eyes Eyes: Reports other Details: Difficulty blinking his left eye ENT ENT ED: Reports other Details: Abnormal facial movements to the left Cardiovascular Cardiovascular: Denies chest pain Respiratory/Chest Respiratory/Chest: Denies dyspnea Gastrointestinal Gastrointestinal: Denies nausea or vomiting Musculoskeletal Musculoskeletal: Denies arthralgias or myalgias Integumentary Denies rash Neurologic Neurologic: Denies headache(s), paresthesias or weakness EXAM Physical Exam Const Vital Signs: 04/18/25 17:53 04/18/25 18:43 Temperature 98.2 F Temperature Source Oral Pulse Rate 73 69 Respiratory Rate 16 14 Blood Pressure 149/99 H 152/82 H Blood Pressure Mean 115 105 Pulse Ox 98 98 Oxygen Delivery Method Room Air Positive well nourished and well developed General Appearance ED: well developed and NAD HEENT Reports moist mucous membranes HEENT Narrative: Clear tympanic membranes bilaterally. Serous fluid noted behind the bilateral TMs. No injection present. Left-sided facial palsy including the forehead present consistent with a Johnson's palsy. Delayed blinking on the left. Eyes PERRL and EOMs intact bilaterally Eyes Narrative: Very mild injection noted to the left sclera. Neck supple and no JVD Chest Wall inspection of chest normal and palpation of chest normal Resp normal respiratory effort and clear to auscultation bilaterally Cardio regular rate and regular rhythm GI normal to inspection, nondistended, normoactive bowel sounds and non-tender Neuro oriented x3 and no sensory deficits noted Neuro Narrative: Deficit with movement of the left face including the forehead and abnormal blinking. This is consistent with a Johnson's palsy. Cranial nerves other rhodes intact. Sensorium / Orientation: alert Motor Exam: strength 5/5 throughout; Negative for general weakness Psych mental status grossly normal Skin no rashes or lesions noted and no wounds MDM MDM MDM Narrative Medical decision making narrative: Patient is evaluated for abnormalities to the left face. Presentation consistent with acute Johnson's palsy. Patient otherwise well-appearing. No headache. Normal neurologic exam otherwise. Lower suspicion for stroke or other neurologic process. Patient is started on high-dose prednisone burst for 7 days given his acute presentation. Given first dose in the emergency room. Given return precautions. Discharged home in stable condition. Counseled on lubricating eyedrops and patching of the eye when sleeping to prevent corneal abrasion. Encouraged follow-up with his primary care doctor. Counseled that most courses are self-limited. Discharge Plan Triage Chief Complaint: Neuro S/Sx ED Provider: Marjan Aldridge Dx/Rx/DC Orders Clinical Impression: Left-sided Johnson's palsy Instructions: ED Johnson's Palsy Prescriptions: New prednisone 20 mg tablet 60 mg PO DAILY 6 Days Qty: 18 0RF No Action lisinopril 5 MG tablet 5 mg PO DAILY Patient Comments: TAKE 1 TABLET BY MOUTH EVERY DAY oxycodone-acetaminophen 5-325 mg tablet 1 tab PO Q6H PRN PRN (Reason: Pain) 3 Days Qty: 12 0RF ondansetron 4 mg tablet,disintegrating 4 mg PO Q8H PRN PRN (Reason: Nausea) Qty: 10 0RF Primary Care Provider: Care Physician,No Primary Referrals: [facility] [Outside] Loco Perez MD [Med Staff - Projector Booth Operator] - Care Physician,No Primary [Primary Care Provider] - Activity Restrictions/Additional Instructions: Please follow-up with primary medicine. Do not have a primary care doctor even given referral to 2 different centers. You can call them to arrange follow-up. Recommend following up in 1 week. Take entire course of steroids as prescribed. Make sure that you are covering her eye at night to prevent scratching her eye while sleeping. Use lubricating eyedrops throughout the day for dry/irritated eyes. Print Language: Kazakh Disposition Disposition: Home, Self Care
[2025-04-18] MEDS: predniSONE 20 MG Tablet 60 MG PO (19:20)
[2025-04-18 19:28] VITALS: BP 138/80; PULSE 66; RESP 16; TEMP 36.8; O2SAT 99
== END 2025-04-18 19:30 | disposition home or self-care (01) ==
PROVIDERS: Emergency Provider Emergency Medicine; Visit Provider Emergency Medicine
DX: G51.0 Bell's palsy (principal); I10 Essential (primary) hypertension; R29.898 Other symptoms and signs involving the musculoskeletal system
CPT/HCPCS: 99282